=== PATIENT | male | born 1995 | race Two or more races ===

== ENCOUNTER 2020-11-13 02:19 | Emergency (ER) | payer SELFPAY ==
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
== END 2020-11-13 02:51 | disposition home or self-care (01) ==
LOC: MW.ED 02:19
DX: Z02.89 Encounter for other administrative examinations (principal)
CPT/HCPCS: 99282